=== PATIENT | male | born 1945 | race Two or more races ===

== ENCOUNTER 2020-08-25 11:34 | Emergency (ER) | payer MEDICARE ==
[2020-08-25] MEDS ORDERED: KEFLEX500 MG PO (13:43)
== END 2020-08-25 14:10 | disposition home or self-care (01) ==
LOC: FER 11:34
DX: S61.212A Laceration without foreign body of right middle finger without damage to nail, initial encounter (principal); I10 Essential (primary) hypertension; Z79.82 Long term (current) use of aspirin; Z79.899 Other long term (current) drug therapy; Z85.46 Personal history of malignant neoplasm of prostate; Z23 Encounter for immunization; W45.8XXA Other foreign body or object entering through skin, initial encounter; Y92.009 Unspecified place in unspecified non-institutional (private) residence as the place of occurrence of the external cause
CPT/HCPCS: 90471; 90715